=== PATIENT | male | born 1995 | race Caucasian/White ===

== ENCOUNTER 2017-10-21 21:15 | Emergency (ER) | payer BC ==
[2017-10-21 21:15] VITALS: BMI 21.9
[2017-10-21 21:49] VITALS: PULSE 74
--- NOTE | 2017-10-21 21:57 | ED PDOC ---
Arrival/HPI - General Chief Complaint: Shortness Of Breath Time Seen by Provider: 10/21/17 21:37 Historian: Patient - History of Present Illness Narrative History of Present Illness (Text): 10/21/17 21:55 A 22 year old male presents to the emergency department accompanied by mother and sister complaining of episodes of shortness of breath for the past 10 days - 2 weeks. Patient reports while experiencing these episodes of shortness of breath he "feels warm." He notes having these symptoms while at home and in school, his last episode was today at approximately 15:00 while in class. Patient reports feeling very stressed, states he has a paper due. Patient denies any fever, chills, nausea, vomiting, abdominal pain, chest pain, cough or any other complaints. Mother requesting MRI to check his heart. Time/Duration: Other (10 days - 2 weeks) Symptom Course: Intermittent Context: Home, School Past Medical History - Provider Review Nursing Documentation Reviewed: Yes - Past History Past History: Non-Contributing - Past Medical History Past Medical History: Non-Contributing - Cardiac Hx Cardiac Disorders: No - Pulmonary Hx Respiratory Disorders: No Hx Asthma: No - Psychiatric Hx Substance Use: No Family/Social History - Physician Review Nursing Documentation Reviewed: Yes Family/Social History: No Known Family HX Smoking Status: Never Smoked Hx Alcohol Use: No Hx Substance Use: No Allergies/Home Meds Allergies/Adverse Reactions: Allergies No Known Allergies Allergy (Verified 10/21/17 22:08) Home Medications: Home Meds Medication Instructions Recorded Confirmed No Known Home Med 10/21/17 10/21/17 Review of Systems - Physician Review All systems were reviewed & negative as marked: Yes - Review of Systems Constitutional: Other ("feeling warm"). absent: Fevers, Night Sweats Respiratory: SOB. absent: Cough Cardiovascular: absent: Chest Pain Gastrointestinal: absent: Abdominal Pain, Nausea, Vomiting Psychiatric: Other (stress) Physical Exam Vital Signs Reviewed: Yes Vital Signs Temp Pulse Resp BP Pulse Ox 10/21/17 21:41 98.2 F 74 18 125/75 99 Temperature: Afebrile Blood Pressure: Normal Pulse: Regular Respiratory Rate: Normal Appearance: Positive for: Well-Appearing, Non-Toxic, Other (Appears extremely anxious) Pain Distress: None Mental Status: Positive for: Alert and Oriented X 3 - Systems Exam Head: Present: Atraumatic, Normocephalic Pupils: Present: PERRL Extroacular Muscles: Present: EOMI Conjunctiva: Present: Normal Mouth: Present: Moist Mucous Membranes Neck: Present: Normal Range of Motion Respiratory/Chest: Present: Clear to Auscultation, Good Air Exchange. No: Respiratory Distress, Accessory Muscle Use Cardiovascular: Present: Regular Rate and Rhythm, Normal S1, S2. No: Murmurs Abdomen: No: Tenderness, Distention, Peritoneal Signs Back: Present: Normal Inspection Upper Extremity: Present: Normal Inspection. No: Cyanosis, Edema Lower Extremity: Present: Normal Inspection. No: Edema Neurological: Present: GCS=15, CN II-XII Intact, Speech Normal Skin: Present: Warm, Dry, Normal Color. No: Rashes Psychiatric: Present: Alert, Oriented x 3, Normal Insight, Normal Concentration , Anxious Medical Decision Making ED Course and Treatment: 10/21/17 21:55 Impression: A 22 year old male with anxiety and episodes of shortness of breath Differential Diagnosis included but are not limited to: Anxiety Plan: -- Chest xray -- EKG -- Reassess and disposition Progress Notes: EKG shows NSR at [address] elevations due to early repolarization. Interpreted by me. Chest xray read and interpreted by me, which shows no active disease. Patients chest xray and EKG show no abnormalities. I have discussed the results and plan with the patient and family, who express understanding. Patient in agreement with plan to be discharged home. Patient is stable for discharge. Patient was instructed to follow up with physician or return if symptoms worsen or new concerning symptoms arise. - RAD Interpretation Radiology Orders: 10/21/17 21:46 CXR [CHEST TWO VIEWS (PA/LAT)] [RAD] Stat - Scribe Statement The provider has reviewed the documentation as recorded by the Scribe Jeanna Cavanaugh Provider Scribe Attestation: All medical record entries made by the Scribe were at my direction and personally dictated by me. I have reviewed the chart and agree that the record accurately reflects my personal performance of the history, physical exam, medical decision making, and the department course for this patient. I have also personally directed, reviewed, and agree with the discharge instructions and disposition. Disposition/Present on Arrival - Present on Arrival Any Indicators Present on Arrival: No History of DVT/PE: No History of Uncontrolled Diabetes: No Urinary Catheter: No History of Decub. Ulcer: No History Surgical Site Infection Following: None - Disposition Have Diagnosis and Disposition been Completed?: Yes Diagnosis: Dyspnea, Anxiety Disposition: HOME/ ROUTINE Disposition Time: 22:27 Patient Plan: Discharge Condition: GOOD Discharge Instructions (ExitCare): Anxiety, Adult (DC), Shortness of Breath ( Dyspnea) (DC) Additional Instructions: [place] - Your EKG, your CXR and your Exam are all normal. I believe that what you are experiencing is anxiety. Take your EKG and your CXR to your doctor for follow up. Return to us if worse or new symptoms occur. Good luck with your paper. Best- Dr. Kelvin English Referrals: [facility], [Primary Care Provider] - Follow up with primary Forms: [employer] Return (Turkmen)
[2017-10-21 22:46] VITALS: BP 120/78; RESP 17; TEMP 98.1; O2SAT 100
--- NOTE | 2017-10-22 09:29 | RAD ---
HISTORY: Dyspnea, intermittently COMPARISON: No prior. TECHNIQUE: Chest PA and lateral FINDINGS: LUNGS: No active pulmonary disease. PLEURA: No significant pleural effusion identified. No pneumothorax apparent. CARDIOVASCULAR: Normal. OSSEOUS STRUCTURES: No significant abnormalities. VISUALIZED UPPER ABDOMEN: Normal. OTHER FINDINGS: None. IMPRESSION: No active disease.
--- NOTE | 2017-10-22 17:44 | CARD ---
APPROVED REPORT EKG Measurement Heart [id number] <Conclusion> Normal sinus rhythm ST elevation, probably due to early repolarization Borderline ECG
== END 2017-10-21 22:45 | disposition home or self-care (01) ==
LOC: ED 21:15
DX: R06.00 Dyspnea, unspecified (principal); F41.9 Anxiety disorder, unspecified